=== PATIENT | male | born 1970 | race Caucasian/White ===

== ENCOUNTER 2022-10-20 08:08 | Emergency (ER) | payer OTHER ==
[~2022-10-20] VITALS: Ht 185.4 cm; Wt 120.2 kg
[~2022-10-20 08:08] MED LIST: ALBU8.5H4 IH; ALPR0.25 PO; CITA10SO PO; LANS15TA6 PO; LISI-768 PO
[2022-10-20] MEDS ORDERED: ALBUTEROL FS 2.5 MG/3 ML VIAL.NEB CONTNEB ONE (08:30)
[2022-10-20] MEDS ORDERED: predniSONE 20 MG TABLET PO ONE (08:30)
[2022-10-20] MEDS ORDERED: IPRATROPIUM NEB FS 0.5 MG/2.5 ML AMPUL.NEB NEB ONE (08:30)
[2022-10-20] MEDS ORDERED: KETOROLAC TROMETHAMINE INJ 30 MG/ML VIAL IM ONE (08:30)
--- NOTE | 2022-10-20 08:32 | NUR ---
Respiratory called for breathing treatment
[2022-10-20] MEDS ORDERED: predniSONE 20 MG TABLET ONE (08:34)
[2022-10-20] MEDS ORDERED: KETOROLAC TROMETHAMINE INJ 30 MG/ML VIAL ONE (08:34)
[2022-10-20] MEDS ORDERED: ALBUTEROL FS 2.5 MG/3 ML VIAL.NEB ONE (08:36)
[2022-10-20] MEDS ORDERED: IPRATROPIUM NEB FS 0.5 MG/2.5 ML AMPUL.NEB ONE (08:36)
[2022-10-20] MEDS ORDERED: BENZ-13 PO (08:37)
[2022-10-20] MEDS ORDERED: IBUP-1955 PO (08:37)
[2022-10-20] MEDS ORDERED: PRED20TA PO (08:37)
[2022-10-20] MEDS ORDERED: ALBU18HF2 INH (08:37)
--- NOTE | 2022-10-20 08:43 | NUR ---
COVID swab obtained and sent to lab
[2022-10-20 10:20] VITALS: BP 147/98
== END 2022-10-20 10:21 | disposition home or self-care (01) ==
LOC: ER 08:11
DX: J45.901 Unspecified asthma with (acute) exacerbation (principal); J06.9 Acute upper respiratory infection, unspecified; R05.9 Cough, unspecified; R09.81 Nasal congestion; I10 Essential (primary) hypertension; K21.9 Gastro-esophageal reflux disease without esophagitis; F41.9 Anxiety disorder, unspecified; Z20.822 Contact with and (suspected) exposure to COVID-19; Z90.89 Acquired absence of other organs; Z90.49 Acquired absence of other specified parts of digestive tract; Z88.0 Allergy status to penicillin; Z79.899 Other long term (current) drug therapy
CPT/HCPCS: 99285; 71045; 87426; 96372; 94799; 94644; J7512; J1885; C9803